=== PATIENT | male | born 1955 | race Caucasian/White ===

== ENCOUNTER 2021-10-25 15:43 | Inpatient (IN) | payer MEDICARE, OTHER ==
[~2021-10-25] VITALS: Ht 182.9 cm; Wt 72.0 kg
[~2021-10-25 15:43] MED LIST: ACET-812 PO; DIL100C PO; DIVA250T8 PO; KEP500T PO; LEVO75TA PO
[2021-10-25 16:47] LABS: BASOPHILS % (AUTO) 0.5 % (0-1); EOSINOPHILS # (AUTO) 0.1 X10'3 (0-0.9); EOSINOPHILS % (AUTO) 1.2 % (0-6); HEMATOCRIT 41.5 % (42.0-52.0); HEMOGLOBIN 14.1 g/dl (14.0-17.9); LYMPHOCYTES # (AUTO) 0.7 X10'3 (1.1-4.8); LYMPHOCYTES % (AUTO) 10.9 % (21-51); MEAN CORPUSCULAR HEMOGLOBIN 31.9 PG (27.0-31.0); MEAN CORPUSCULAR VOLUME 93.8 FL (78-98); MEAN PLATELET VOLUME 7.2 FL (7.4-10.4); MONOCYTES # (AUTO) 0.4 X10'3 (0-0.9); MONOCYTES % (AUTO) 5.8 % (2-12); NEUTROPHILS # (AUTO) 5.2 X10'3 (1.8-7.7); NEUTROPHILS % (AUTO) 81.6 % (42-75); PLATELET COUNT 227 X10'3 (140-440); RED BLOOD COUNT 4.43 X10'6 (4.70-6.10); RED CELL DISTRIBUTION WIDTH 13.2 % (11.5-14.5); WHITE BLOOD COUNT 6.4 X10'3 (4.5-11.0)
[2021-10-25] MEDS ORDERED: levetiracetam inj 1,000 MG in normal saline 100ml IV soln 100 ML IV ONE (17:00)
[2021-10-25 17:09] LABS: ALANINE AMINOTRANSFERASE 28 U/L (12-78); ALBUMIN 4.1 G/DL (3.4-5.0); ALBUMIN/GLOBULIN RATIO 1.1 (1.1-1.5); ALKALINE PHOSPHATASE 66 IU/L (46-116); ANION GAP 10 (8-16); ASPARTATE AMINO TRANSFERASE 33 U/L (10-37); BILIRUBIN,TOTAL 0.4 MG/DL (0.1-1.0); BLOOD UREA NITROGEN 18 MG/DL (7-18); BUN/CREATININE RATIO 12.2 (5.4-32.0); CALCIUM 8.6 MG/DL (8.5-10.1); CHLORIDE 101 MMOL/L (99-107); CREATININE 1.47 MG/DL (0.60-1.10); GLUCOSE 181 MG/DL (70-104); SODIUM 138 MMOL/L (135-145); TOTAL CARBON DIOXIDE 26.8 MMOL/L (24-32); TOTAL PROTEIN 7.8 G/DL (6.4-8.2); eGFR 48 ML/MIN
[2021-10-25] MEDS ORDERED: normal saline 1000ml 1,000 ML IV ONE (17:15)
--- NOTE | 2021-10-25 17:22 | NUR ---
WAS IN [place]IG[place] WHEN I HEARD GRUNTING LOOKED OUT THE WINDOW OF ADMITING AND SAW PT HAVING A SEIZURE WENT OUT TO LOBBY TO ASSIST PT BUT BEFORE I WAS ABLE TO GET OUT TO HIM HE FELL OVER AND HIT HIS HEAD AGINST THE WALL PT CONT TO HAVE SEIZURE I RULLED HIM ON TO HIS SIDE AND LIFTED HIS HEAD TO PROTECT HIS AIR WAY PT STOPPED SEIZING AFTER ABOUT 60 SECONDS PT WAS THEN POSTTICAL CONTIUNED TO HOLD HEAD TO KEEP AIR WAY OPEN AFTER GUREY ARRIVED WITH ASSISTNACE WE LIFTED PT TO THE [facility] AND AT THIS TIME PT STARTED TO WAKE UP AND RESPOND PT WAS THEM TAKEN TO ROOM 8 IN THE ER
[2021-10-25 17:32] LABS: CLARITY,URINE CLEAR (Clear); COLOR,URINE YELLOW (Yellow); GLUCOSE, URINE NEGATIVE (Neg); KETONES,URINE TRACE mg/dl (Neg); LEUKOCYTE ESTERASE ,URINE NEGATIVE (Neg); NITRITES, URINE NEGATIVE (Neg); OCCULT BLOOD,URINE NEGATIVE (Neg); PROTEIN,URINE 100 mg/dl (Neg); UA COLLECTION TYPE CLN CATCH MIDSTREAM; UROBILINOGEN,URINE 0.2 E.U/dL (0.2-1.0)
[2021-10-25 17:37] LABS: ETHANOL < 0.010 GM/DL (0.0-0.010)
[2021-10-25 17:38] LABS: URINE AMPHETAMINE SCREEN POSITIVE (Neg); URINE BARBITUATE SCREEN NEGATIVE (Neg); URINE BENZODIAZEPINES SCREEN NEGATIVE (Neg); URINE CANNABINOID SCREEN POSITIVE (Neg); URINE COCAINE SCREEN NEGATIVE (Neg); URINE METHADONE SCREEN NEGATIVE (Neg); URINE OPIATE SCREEN NEGATIVE (Neg); URINE PHENCYCLIDINE SCREEN NEGATIVE (Neg)
[2021-10-25 17:40] LABS: BACTERIA,URINE NONE SEEN /HPF (Neg); RBC,URINE NONE SEEN /HPF (0-2); SQUAMOUS EPITHELIAL CELL,UR NONE SEEN /LPF (FEW); WBC,URINE 0-4 /HPF (0-4)
[2021-10-25] MEDS ORDERED: TETanus/Pertussis (Acell)/Diphther VAC/PF (Tdap-Adult) 0.5ml syringe IMVAC ONE (18:10)
--- NOTE | 2021-10-25 18:25 | NUR ---
HAM CURER YURIDIA AT BEDSIDE REPAIRING LACERATION
--- NOTE | 2021-10-25 18:36 | NUR ---
PT PRESENTING POSTICTAL. UNABLED TO ANSWER SIMPLE YES OR NO QUESTIONS AT THIS TIME BUT DOES AWAKEN TO NAME AND ASKS "WHAT?" PT WAS UNABLE TO RESPOND TO QUESTIONS SUCH "DO YOU WANT A BLANKET?" PT SIMPLY STARED AT NURSE
--- NOTE | 2021-10-25 19:10 | NUR ---
PT'S FRIEND ZONIA CALLED FOR AN UPDATE. RN CONFIRMED WITH PT THAT HE WAS OKAY WITH ZONIA RECIEVING UPDATE. ZONIA LEFT TWO PHONE NUMBERS FOR TO CALL FOR UPDATES WELL A RIDE HOME WHEN PT IS ELIGIBLE FOR DISCHARGE ZONIA (FRIEND) [phone] FLORES (ROOMMATE) [phone]
--- NOTE | 2021-10-25 19:52 | NUR ---
THIS RN WITNESSED 20 SECOND SEIZURE WITH YURIDIA ENGEL IN ROOM RIGHT AFTER SHE TOLD THE PT HE WAS CLEARED FOR DISCHARGE. PT IS UNRESPONSIVE. VITAL SIGNS ARE STABLE AND WERE STABLE THROUGHOUT SEIZURE. Addendum: 10/25/21 at 3 by WALTER PT WILL NOW BE ADMITTED AND IS GETTING FOLLOW UP CHEST X RAY AND EKG
[2021-10-25] MEDS ORDERED: levetiracetam inj 1,000 MG in normal saline 100ml IV soln 100 ML IV SCH (20:00)
[2021-10-25] MEDS ORDERED: levetiracetam-NS 1000mg/100ml 100 ML IV SCH (20:00)
[2021-10-25] MEDS ORDERED: levetiracetam inj 1,000 MG in normal saline 100ml IV soln 90 ML IV SCH ×9 (20:00→23:00)
--- NOTE | 2021-10-25 20:07 | NUR ---
PHARMACY PREPARING KEPPRA DRIP RIGHT NOW. WILL CALL RN WHEN IT IS READY
[2021-10-25] MEDS: levetiracetam inj 1,000 MG in normal saline 100ml IV soln 100 ML IV SCH (20:55)
[2021-10-25] MEDS ORDERED: magnesium hydroxide 30ml (MOM) UD suspension PO PRN (21:15)
[2021-10-25] MEDS ORDERED: magnesium Cl slow-release 64mg tablet PO PRN (21:15)
[2021-10-25] MEDS ORDERED: mag hydrox/Alum hydrox/simeth 30ml oral suspension PO PRN (21:15)
[2021-10-25] MEDS ORDERED: LORazepam 2 mg/ml vial IV PRN (21:15)
[2021-10-25] MEDS ORDERED: acetaminophen 325mg tablet PO PRN (21:15)
[2021-10-25] MEDS ORDERED: magnesium 4gm in 100ml NS 100 ML IV PRN (21:15)
[2021-10-25] MEDS ORDERED: magnesium 2GM in 50ml NS 50 ML IV PRN (21:15)
[2021-10-25] MEDS ORDERED: potassium CL 10mEq/100ml bag 100 ML IV PRN (21:15)
[2021-10-25] MEDS ORDERED: POTASSIUM BICARB 20meq eff tab 20 MEQ TABLET.EFF PO PRN ×2 (21:15)
[2021-10-25 21:55] LABS: MAGNESIUM 1.5 MG/DL (1.5-2.4); POTASSIUM 3.7 MMOL/L (3.5-5.1)
--- NOTE | 2021-10-25 22:55 | NUR ---
THIS RN WITNESSED ANOTHER SEIZURE LASTING 45 SECONDS. RN CALLED PROVIDER WHO GAVE NEW MED ORDERS.
[2021-10-25] MEDS ORDERED: valproic acid 250mg capsule PO SCH (23:00)
--- NOTE | 2021-10-25 23:21 | NUR ---
PT IS AWAKE, ALERT AND ORIENTED TO PERSON BUT NOT PLACE OR EVENT. HE DOES NOT REMEMBER HAVING ANY SEIZURES TODAY AND STATED THAT [facility].
--- NOTE | 2021-10-26 03:26 | NUR ---
PT FINALLY WOKE UP FROM SLEEPING AND WAS A+OX4. RN HELPED PT TO STAND TO USE BEDSIDE COMMODE AND PT WAS ABLE TO FOLLOW DIRECTIONS AND RESPOND APPROPRIATELY
[2021-10-26 06:40] VITALS: BP 155/65
[2021-10-26 07:50] LABS: ANION GAP 8 (8-16); BLOOD UREA NITROGEN 13 MG/DL (7-18); BUN/CREATININE RATIO 11.7 (5.4-32.0); CHLORIDE 103 MMOL/L (99-107); CREATININE 1.11 MG/DL (0.60-1.10); GLUCOSE 94 MG/DL (70-104); POTASSIUM 4.1 MMOL/L (3.5-5.1); SODIUM 138 MMOL/L (135-145); TOTAL CARBON DIOXIDE 26.9 MMOL/L (24-32)
[2021-10-26 07:51] LABS: ALANINE AMINOTRANSFERASE 29 U/L (12-78); ALBUMIN 3.4 G/DL (3.4-5.0); ALKALINE PHOSPHATASE 66 IU/L (46-116); ASPARTATE AMINO TRANSFERASE 60 U/L (10-37); BILIRUBIN,TOTAL 0.6 MG/DL (0.1-1.0); CALCIUM 8.4 MG/DL (8.5-10.1); MAGNESIUM 1.6 MG/DL (1.5-2.4); TOTAL PROTEIN 6.9 G/DL (6.4-8.2); eGFR 66 ML/MIN
[2021-10-26] MEDS ORDERED: K and/or MAG REPLACEMENT MC SCH (08:00)
[2021-10-26] MEDS ORDERED: docusate sod 100mg capsule PO SCH (08:00)
[2021-10-26] MEDS: levetiracetam inj 1,000 MG in normal saline 100ml IV soln 100 ML IV SCH (08:00)
[2021-10-26] MEDS ORDERED: levetiracetam inj 1,000 MG in normal saline 100ml IV soln 100 ML IV SCH (08:00)
[2021-10-26] MEDS ORDERED: KEP500T PO (08:50)
== END 2021-10-26 09:54 | disposition home or self-care (01) | DRG 101 ==
LOC: ER 15:44 → ED HOLD 21:14
PROVIDERS: ADMIT Internal Medicine; ATTEND Internal Medicine
PROC: 0HQ1XZZ Repair Face Skin, External Approach (ICD-10-PCS; principal; 2021-10-25)
PROC: 3E0234Z Introduction of Serum, Toxoid and Vaccine into Muscle, Percutaneous Approach (ICD-10-PCS; 2021-10-25)
DX: G40.802 Other epilepsy, not intractable, without status epilepticus (principal); N17.9 Acute kidney failure, unspecified; F15.10 Other stimulant abuse, uncomplicated; W05.0XXA Fall from non-moving wheelchair, initial encounter; Z20.822 Contact with and (suspected) exposure to COVID-19; S01.81XA Laceration without foreign body of other part of head, initial encounter; E03.9 Hypothyroidism, unspecified; E86.0 Dehydration; Z79.899 Other long term (current) drug therapy; Z90.49 Acquired absence of other specified parts of digestive tract; Y93.89 Activity, other specified; Y99.8 Other external cause status; Y92.009 Unspecified place in unspecified non-institutional (private) residence as the place of occurrence of the external cause; Z71.51 Drug abuse counseling and surveillance of drug abuser; Z23 Encounter for immunization
CPT/HCPCS: 12011; 36415; 70450; 70486; 71045; 72125; 80053; 80164; 80305; 80320; 81001; 83735; 84132; 85025; 90471; 90715; 96365; 99285; A6449; G0378; J1953; J3490; J7030